=== PATIENT | female | born 1990 | race Two or more races ===

== ENCOUNTER 2020-05-29 14:19 | Inpatient (IN) | payer OTHER ==
[~2020-05-29] VITALS: Ht 167.6 cm; Wt 80.0 kg
[2020-06-02] MEDS: LACTATED RINGERS 1,000 ML IV SCH ×3 (15:00→18:26)
[2020-06-02 15:29] LABS: BASOPHILS % (AUTO) 1 % (0-1); EOSINOPHILS % (AUTO) 1 % (1-7); LYMPHOCYTES % (AUTO) 21 % (22-44); MEAN CORPUSCULAR HEMOGLOBIN 29.5 pg (27.0-34.8); MEAN CORPUSCULAR HGB CONC 34.1 g/dL (32.4-35.8); MEAN PLATELET VOLUME 8.2 fL (7.4-10.4); MONOCYTES % (AUTO) 8 % (2-9); NEUTROPHILS % (AUTO) 70 % (42-75); PLATELET COUNT 217 x10^3/uL (130-400); RED BLOOD COUNT 4.25 x10^6/uL (3.82-5.3); RED CELL DISTRIBUTION WIDTH 13.6 % (9.6-15.2)
[2020-06-02] MEDS ORDERED: METOCLOPRAMIDE 5 MG/ML, 2ML IVPush PRN (15:30)
[2020-06-02] MEDS ORDERED: FENTANYL PF 100 MCG/2ML IVPush PRN (15:30)
[2020-06-02] MEDS ORDERED: FENTANYL PF 100 MCG/2ML IV PRN (15:30)
[2020-06-02] MEDS ORDERED: CALCIUM CARBONATE 500 MG TAB.CHEW PO PRN (15:30)
[2020-06-02] MEDS ORDERED: TERBUTALINE 1 MG/ML, 1ML IVPush PRN (15:30)
[2020-06-02] MEDS ORDERED: OXYTOCIN 30U/ 0.9% NaCL 500ML 500 ML IV PRN (15:30)
[2020-06-02] MEDS ORDERED: SODIUM CITRATE/CITRIC ACID 30 ML UDC PO PRN (15:30)
[2020-06-02] MEDS ORDERED: TERBUTALINE 1 MG/ML, 1ML SQ PRN (15:30)
[2020-06-02] MEDS ORDERED: OXYTOCIN 30U/ 0.9% NaCL 500ML 500 ML IV ONE (15:30)
[2020-06-02] MEDS ORDERED: D5%-LACTATED RINGERS 1,000 ML IV SCH (15:30)
[2020-06-02 15:33] LABS: MD NO
[2020-06-02] MEDS ORDERED: FENTANYL PF 100 MCG/2ML ONE (15:49)
[2020-06-02] MEDS ORDERED: FENTANYL/BUPIV./NS/PF 250 ML EPIDCONT ONE (15:50)
[2020-06-02] MEDS ORDERED: BUPIVACAINE 0.25% ONE (15:50)
[2020-06-02] MEDS ORDERED: NEWBORN KIT ONE (16:32)
[2020-06-02] MEDS ORDERED: MISOPROSTOL 200 MCG TABLET ONE (16:32)
[2020-06-02] MEDS ORDERED: LIDOCAINE 1%, 20ML ONE (16:32)
[2020-06-02] MEDS ORDERED: MISOPROSTOL 25 MCG TABLET ONE ×2 (16:32→22:18)
[2020-06-02] MEDS ORDERED: OXYTOCIN 30U/ 0.9% NaCL 500ML 500 ML ONE (16:33)
[2020-06-02] MEDS: MISOPROSTOL 25 MCG TABLET VG PRN ×2 (16:38→22:20)
[2020-06-02] MEDS ORDERED: DIPHENHYDRAMINE 50 MG/ML, 1ML ONE (18:21)
[2020-06-02] MEDS ORDERED: DIPHENHYDRAMINE 50 MG/ML, 1ML IVPush ONE (18:30)
[2020-06-03] MEDS: LACTATED RINGERS 1,000 ML IV SCH ×2 (10:46→19:08)
[2020-06-03] MEDS ORDERED: LIDOCAINE/MPF 2%-EPI 1:200K, 20 ML ONE ×3 (13:51→20:06)
[2020-06-03] MEDS ORDERED: AMPICILLIN 2 GM in SODIUM CHLORIDE 0.9% 100 ML IV ONE (17:30)
[2020-06-03] MEDS ORDERED: ACETAMINOPHEN 325 MG TABLET ONE (19:50)
[2020-06-03] MEDS ORDERED: SODIUM CITRATE/CITRIC ACID 15 ML UDC ONE (20:08)
[2020-06-03] MEDS ORDERED: METOCLOPRAMIDE 5 MG/ML, 2ML ONE (20:08)
[2020-06-03] MEDS ORDERED: AZITHROMYCIN 500 MG INJ ONE (20:41)
[2020-06-03] MEDS ORDERED: KETOROLAC 30 MG/1 ML ONE (20:49)
[2020-06-03] MEDS ORDERED: SODIUM CHLORIDE 0.9% PF 10ML ONE (20:49)
[2020-06-03] MEDS ORDERED: ONDANSETRON 2MG/ML, 2ML ONE (20:49)
[2020-06-03] MEDS ORDERED: CEFAZOLIN 1,000 MG ONE (20:49)
[2020-06-03] MEDS ORDERED: DEXAMETHASONE 4 MG/ML, 1ML ONE (20:49)
[2020-06-03] MEDS ORDERED: OXYTOCIN 10 UNITS/ML, 1ML ONE (20:49)
[2020-06-03] MEDS ORDERED: morphine SULFATE/PF 1 MG/ML, 10ML ONE (21:00)
[2020-06-03] MEDS ORDERED: FENTANYL PF 100 MCG/2ML ONE (21:52)
[2020-06-03] MEDS ORDERED: METOCLOPRAMIDE 5 MG/ML, 2ML IV PRN (22:00)
[2020-06-03] MEDS ORDERED: MISOPROSTOL 200 MCG TABLET PR PRN (22:00)
[2020-06-03] MEDS ORDERED: KETOROLAC 30 MG/1 ML IV PRN (22:00)
[2020-06-03] MEDS ORDERED: OXYcodone IR 5MG TABLET PO PRN (22:00)
[2020-06-03] MEDS ORDERED: ACETAMINOPHEN 325 MG TABLET PO PRN ×2 (22:00)
[2020-06-03] MEDS ORDERED: ONDANSETRON 2MG/ML, 2ML IV PRN (22:00)
[2020-06-03] MEDS ORDERED: morphine SULFATE 10 MG/ML, 1ML IVPush PRN ×2 (22:00)
[2020-06-03] MEDS ORDERED: RHOGAM FROM BLOOD BANK 1 NOTE EA IM/IV ONE (22:00)
[2020-06-03] MEDS ORDERED: MEASLES,MUMPS&RUBELLA VACC/PF 0.5 ML SQ-VACC PRN (22:00)
[2020-06-03] MEDS ORDERED: CALCIUM CARBONATE 500 MG TAB.CHEW PO PRN (22:00)
[2020-06-04] VITALS: BP 131/77
[2020-06-04] MEDS: LACTATED RINGERS 1,000 ML IV SCH ×7 (00:39→22:00)
[2020-06-04] MEDS: OXYTOCIN 30U/ 0.9% NaCL 500ML 500 ML IV SCH ×3 (00:40→18:00)
[2020-06-04] MEDS ORDERED: DIPHENHYDRAMINE 50 MG/ML, 1ML IV PRN (01:00)
[2020-06-04] MEDS ORDERED: NO SEDATIVES, TRANQUILIZERS OR ANTIEMETICS XX SCH (01:00)
[2020-06-04] MEDS ORDERED: ONDANSETRON 2MG/ML, 2ML IVPush PRN (01:00)
[2020-06-04] MEDS ORDERED: EPHEDRINE 50 MG/ML, 1ML IVPush PRN (01:00)
[2020-06-04] MEDS ORDERED: NALOXONE 0.4 MG/ML, 1ML IV PRN (01:00)
[2020-06-04] MEDS ORDERED: morphine SULFATE 10 MG/ML, 1ML IVPush PRN (01:00)
[2020-06-04] MEDS: KETOROLAC 30 MG/1 ML IVPush SCH ×5 (03:19→16:16)
[2020-06-04 03:23] VITALS: BP 135/82
[2020-06-04 05:58] LABS: BASOPHILS % (AUTO) 0 % (0-1); EOSINOPHILS % (AUTO) 0 % (1-7); LYMPHOCYTES % (AUTO) 6 % (22-44); MEAN CORPUSCULAR HEMOGLOBIN 29.4 pg (27.0-34.8); MEAN CORPUSCULAR HGB CONC 33.8 g/dL (32.4-35.8); MEAN PLATELET VOLUME 8.2 fL (7.4-10.4); MONOCYTES % (AUTO) 5 % (2-9); NEUTROPHILS % (AUTO) 89 % (42-75); PLATELET COUNT 163 x10^3/uL (130-400); RED BLOOD COUNT 3.42 x10^6/uL (3.82-5.3); RED CELL DISTRIBUTION WIDTH 13.5 % (9.6-15.2)
[2020-06-04 06:00] LABS: MD NO
[2020-06-04 07:00] VITALS: BP 112/71
[2020-06-04] MEDS: DOCUSATE 100 MG CAPSULE PO PRN (08:26)
[2020-06-04] MEDS: SIMETHICONE 80 MG CHEW TAB PO PRN ×2 (08:26→15:57)
[2020-06-04] MEDS: PRENATAL VIT/IRON/FA 1 EACH TABLET PO SCH (08:26)
[2020-06-04] MEDS: OXYcodone/APAP 5/325MG TABLET PO PRN ×2 (11:43→17:49)
[2020-06-04 13:00] VITALS: BP 110/69
[2020-06-04] MEDS: IBUPROFEN 600 MG TABLET PO PRN ×2 (16:19→22:31)
[2020-06-04 17:30] VITALS: BP 113/73
[2020-06-04 20:00] VITALS: BP 123/78
[2020-06-05] MEDS: OXYcodone IR 5MG TABLET PO PRN ×6 (00:54→23:02)
[2020-06-05] MEDS: LACTATED RINGERS 1,000 ML IV SCH ×2 (04:00→04:04)
[2020-06-05] MEDS: OXYTOCIN 30U/ 0.9% NaCL 500ML 500 ML IV SCH (04:00)
[2020-06-05] MEDS: IBUPROFEN 600 MG TABLET PO PRN ×3 (05:06→18:11)
[2020-06-05 07:15] VITALS: BP 111/75
[2020-06-05] MEDS: DOCUSATE 100 MG CAPSULE PO PRN ×2 (09:30→23:02)
[2020-06-05] MEDS: PRENATAL VIT/IRON/FA 1 EACH TABLET PO SCH (09:30)
[2020-06-05 20:00] VITALS: BP 124/79
[2020-06-06] MEDS: IBUPROFEN 600 MG TABLET PO PRN ×4 (01:53→20:01)
[2020-06-06] MEDS: OXYcodone IR 5MG TABLET PO PRN ×5 (03:16→21:46)
[2020-06-06 07:45] VITALS: BP 128/74
[2020-06-06] MEDS: PRENATAL VIT/IRON/FA 1 EACH TABLET PO SCH (08:07)
[2020-06-06] MEDS: DOCUSATE 100 MG CAPSULE PO PRN ×2 (08:07→20:01)
[2020-06-06 21:45] VITALS: BP 146/77
[2020-06-07] MEDS: IBUPROFEN 600 MG TABLET PO PRN ×2 (02:01→08:00)
[2020-06-07] MEDS: OXYcodone IR 5MG TABLET PO PRN ×3 (02:01→12:45)
[2020-06-07] MEDS: PRENATAL VIT/IRON/FA 1 EACH TABLET PO SCH (08:00)
[2020-06-07] MEDS: DOCUSATE 100 MG CAPSULE PO PRN (08:00)
[2020-06-07 08:37] VITALS: BP 121/82
[2020-06-07] MEDS ORDERED: PREN-75 PO (15:51)
[2020-06-07] MEDS ORDERED: SIME80TA16 PO (15:51)
[2020-06-07] MEDS ORDERED: OXYC5TAB98 PO (15:51)
[2020-06-07] MEDS ORDERED: DOCU-131 PO (15:51)
[2020-06-07] MEDS ORDERED: IBUP-1222 PO (15:51)
== END 2020-06-07 18:30 | disposition home or self-care (01) | DRG 788 ==
LOC: LDIP 06-02 15:06 → 2NW 06-03 23:32
PROVIDERS: ADMIT Obstetrics & Gynecology; ATTEND Obstetrics & Gynecology
PROC: 10D00Z1 Extraction of Products of Conception, Low, Open Approach (ICD-10-PCS; principal; 2020-06-03)
DX: O77.0 Labor and delivery complicated by meconium in amniotic fluid (principal); O62.1 Secondary uterine inertia; Z37.0 Single live birth; Z3A.40 40 weeks gestation of pregnancy; Z20.822 Contact with and (suspected) exposure to COVID-19
CPT/HCPCS: 36415; 85025; 86592; 86850; 86900; 87635; G0378; J0290; J0456; J0690; J1100; J1885; J2274; J2405; J3010; J1200; J2590; J2765; J7120

== ENCOUNTER 2020-05-30 19:23 | Outpatient (CLI) | payer OTHER ==
[~2020-05-30] VITALS: Ht 167.6 cm; Wt 79.5 kg
[2020-05-30 19:47] VITALS: BP 121/75
== END 2020-05-30 20:15 | disposition home or self-care (01) ==
LOC: LDOP 19:23
PROVIDERS: ATTEND Obstetrics & Gynecology
DX: O42.92 Full-term premature rupture of membranes, unspecified as to length of time between rupture and onset of labor (principal); Z3A.40 40 weeks gestation of pregnancy
CPT/HCPCS: 59025; 89060; Q0114